=== PATIENT | female | born 1975 | race Caucasian/White ===

== ENCOUNTER 2019-11-12 02:02 | Emergency (ER) | payer OTHER, SELFPAY ==
[2019-11-12] MEDS ORDERED: NORCO 5/325MG TABLET (BULK FOR ED) As Ordered ONE (06:33)
== END 2019-11-12 06:20 | disposition home or self-care (01) ==
LOC: M ED 02:02
DX: S52.531A Colles' fracture of right radius, initial encounter for closed fracture (principal); V86.59XA Driver of other special all-terrain or other off-road motor vehicle injured in nontraffic accident, initial encounter; Z79.899 Other long term (current) drug therapy

== ENCOUNTER → 2024-06-14 | Outpatient (REF) | payer OTHER, MEDICAID ==
[2024-06-14 19:53] LABS: BASO # 0.1 10^3/uL (0.0-0.2); BASO % 0.8 % (0.0-1.0); EOS # 0.1 10^3/uL (0.0-0.5); HEMATOCRIT 38.9 % (36.0-47.0); HEMOGLOBIN 12.9 g/dl (12.0-15.5); LYMPH # 1.9 10^3/uL (1.5-5.0); LYMPH % 32.3 % (24.0-44.0); MEAN CORPUSCULAR HEMOGLOBIN 31.7 pg (27.0-33.0); MEAN CORPUSCULAR HGB CONC 33.2 g/dl (32.0-36.5); MEAN CORPUSCULAR VOLUME 95.6 fl (80.0-96.0); MONO # 0.6 10^3/uL (0.0-0.8); MONO % 9.3 % (2.0-8.0); NEUTROPHILS # 3.3 10^3/uL (1.5-8.5); NEUTROPHILS % 55.4 % (36.0-66.0); PLATELET COUNT, AUTOMATED 167 10^3/uL (150-450); RED BLOOD COUNT 4.07 10^6/uL (4.00-5.40); WHITE BLOOD COUNT 5.9 10^3/uL (4.0-10.0)
[2024-06-14 20:19] LABS: TOTAL IRON BINDING CAPACITY 319 UG/DL (250-425)
[2024-06-14 20:21] LABS: CHOLESTEROL LEVEL 203 MG/DL (<200); CHOLESTEROL RISK RATIO 3.94 (<5); HDL CHOLESTEROL 51.4 MG/DL (>40); IRON (FE) 38 UG/DL (50-170); LDL CHOLESTEROL 131.6 MG/DL (<100); MAGNESIUM LEVEL 2.2 MG/DL (1.8-2.4); NON-HDL-C 151.6 MG/DL; PERCENT SATURATION 11.9 % (13.2-45.0); TOTAL 25(OH) VITAMIN D 29.5 NG/ML (20.0-100.0); TRIGLYCERIDES LEVEL 100 MG/DL (<150); VITAMIN B12 LEVEL 339 PG/ML (211-911)
== END ==
LOC: M LAB REF 17:39
PROVIDERS: ATTEND Nurse Practitioner Family
DX: R19.7 Diarrhea, unspecified (principal); Z11.9 Encounter for screening for infectious and parasitic diseases, unspecified; Z86.39 Personal history of other endocrine, nutritional and metabolic disease; E78.5 Hyperlipidemia, unspecified; E55.9 Vitamin D deficiency, unspecified; R20.2 Paresthesia of skin